=== PATIENT | female | born 1995 | race Caucasian/White ===

== ENCOUNTER → 2023-12-12 19:12 | Outpatient (REF) | payer OTHER, SELFPAY | LOC: MRI 19:12 | PROVIDERS: ATTENDING PHYSICIAN Specialist; FAMILY PHYSICIAN Physician Assistant Medical | DX: G40.209 Localization-related (focal) (partial) symptomatic epilepsy and epileptic syndromes with complex partial seizures, not intractable, without status epilepticus (principal) | CPT/HCPCS: 70553; A9575 ==